=== PATIENT | male | born 2000 | race Caucasian/White ===

== ENCOUNTER 2019-01-25 23:02 | Emergency (ER) | payer OTHER ==
--- NOTE | 2019-01-25 23:45 | EDPHY ---
H & P Stated Complaint: syncopal episode and vomiting @1900 Time Seen by Provider: 01/25/19 23:22 HPI/ROS: Chief Complaint: Syncope HPI: 18-year-old male with a history of syncope in the past and history of poor appetite with possible irritable bowel syndrome. Patient was feeling well tonight. Got up and had an episode of vomiting. He then stood up to go up the stairs and felt lightheaded and lowered himself to the ground and lost consciousness. He was unconscious for a few seconds. He has had this happen multiple times in the past. He has a history of poor appetite and not eating. Did eat some cereal today but is not eat more than once a day. He has been drinking fluids today per his fiancee. No fevers or chills. No cough. No family history of sudden cardiac . No palpitations. He recently moved back to [place] from [place] about a month ago. Does not have a local physician. Patient states he has had EKGs in the past was told he had evidence of some "prior heart damage" ROS: 10 systems were reviewed and were negative except those elements noted in the HPI. PMH: Irritable bowel Social History: Vapes nicotine, no alcohol, marijuana Family History: non-contributory Physical Exam: Gen: Awake, Alert, No Distress HEENT: Nose: no rhinorrhea Eyes: PERRLA, EOMI Mouth: Moist mucosa Neck: Supple, no JVD Chest: nontender, lungs clear to auscultation Heart: S1, S2 normal, 2/6 systolic murmur at the left Heart border Abd: Soft, non-tender, no guarding Back: no CVA tenderness, no midline tenderness Ext: no edema, non-tender Skin: no rash Neuro: CN II-XII intact, Sensation grossly intact, Strength 5/5 in bilateral upper and lower extremities - Personal History Current Tetanus/Diphtheria Vaccine: Yes - Medical/Surgical History Hx Asthma: No Hx Chronic Respiratory Disease: No Hx Diabetes: No Hx Cardiac Disease: No Hx Renal Disease: No Hx Cirrhosis: No Hx Alcoholism: No Hx HIV/AIDS: No Hx Splenectomy or Spleen Trauma: No Other PMH: denies - Social History Smoking Status: Current every day smoker Constitutional: Initial Vital Signs Temperature (C) 36.7 C 01/25/19 23:05 Heart Rate 79 01/25/19 23:05 Respiratory Rate 16 01/25/19 23:05 Blood Pressure 110/58 L 01/25/19 23:05 O2 Sat (%) 96 01/25/19 23:05 O2 Delivery Mode Room Air Allergies/Adverse Reactions: No Known Allergies Allergy (Unverified 01/25/19 23:09) Home Medications: Medication Instructions Recorded NK [No Known Home Meds] 01/25/19 Medical Decision Making - Diagnostics EKG Interpretation: EKG time 11:43 p.m., sinus rhythm rate of 69, normal axis, normal intervals. There is Q-waves across the precordium without any acute ischemic changes. Symptoms consistent with prior ECG report by patient. ED Course/Re-evaluation: 18-year-old male with a syncopal episode after vomiting. Patient gave her verbal report of "cardiac damage" in the past. He does have a systolic murmur at the left sternal border. ECG shows Q-waves in the anterior leads. Plan will be to refer to Cardiology for further follow-up and evaluation. I do not think the patient meets criteria for admission the hospital at this time. He has had multiple episodes similar episodes in the past. Departure - Departure Disposition: Home, Routine, Self-Care Clinical Impression: Syncope Condition: Good Instructions: Syncope (ED) Additional Instructions: Follow up with Cardiology and primary care physician in about a week for recheck. Return to the emergency department for more episodes of fainting, chest pain, shortness of breath, or any other concerns. Referrals: Roberto Duran MD [Medical Doctor] - As per Instructions Lurdes Krishnan MD [Medical Doctor] - As per Instructions
[2019-01-26 00:51] VITALS: BP 116/73
--- NOTE | 2019-01-31 12:41 | CPEKG ---
Test Reason : OPEN Blood Pressure : / mmHG Vent. Rate : 069 BPM Atrial Rate : 071 BPM P-R Int : 182 ms QRS Dur : 070 ms QT Int : 366 ms P-R-T Axes : -24 060 035 degrees QTc Int : 392 ms Sinus rhythm Abnormal Q suggests anterior infarct Confirmed by Dylon Hamilton ([id number]) on 01/31/2019 12:41:21 PM Referred By: Dylon Hamilton Confirmed By:Dylon Hamilton
== END 2019-01-26 00:51 | disposition home or self-care (01) ==
DX: R11.2 Nausea with vomiting, unspecified (principal); R55 Syncope and collapse; Z86.79 Personal history of other diseases of the circulatory system